=== PATIENT | male | born 1975 | race Caucasian/White ===

== ENCOUNTER → 2021-02-19 | Outpatient (CLI) | payer OTHER ==
[2021-02-20 01:20] LABS: T4, Free (Free Thyroxine) 1.2 ng/dL (0.80-1.80)
[2021-02-20 01:21] LABS: Follicle Stimulating Hormone 0.9 mIU/mL; Luteinizing Hormone 2.1 mIU/mL
[2021-02-20 01:39] LABS: Prolactin 49.1 ng/mL (2.1-17.7)
[2021-02-20 22:39] LABS: ACTH 7.14 pg/mL (0.00-45.99)
== END | disposition home or self-care (01) ==
LOC: LABWHC1 14:32
PROVIDERS: ATTEND Internal Medicine Endocrinology, Diabetes & Metabolism
DX: D35.2 Benign neoplasm of pituitary gland (principal)
CPT/HCPCS: 36415; 82024; 82533; 83001; 83002; 84146; 84305; 84403; 84439; 84443; 84480